=== PATIENT | female | born 1995 | race Caucasian/White ===

== ENCOUNTER 2019-10-12 17:54 | Emergency (ER) | payer SELFPAY ==
[~2019-10-12] VITALS: Ht 165.1 cm; Wt 77.0 kg
[2019-10-12] MEDS ORDERED: HYDROcodone/APAP 5/325MG 1 TAB TABLET PO ONE (18:45)
--- NOTE | 2019-10-12 19:01 | RAD ---
Study: 1. CR WRIST 3V RIGHT 2. CR ELBOW LEFT 3V Indication: Fall. Comparison: None. Findings: Elbow: Elbow fracture/dislocation with dorsal dislocation of the radius and ulna relative to the distal humerus. Obliquely oriented, comminuted and displaced fracture of the distal humerus. Attention on post reduction radiographs for detection of any fractures elsewhere. Wrist: Longitudinal split fracture along the ulnar margin of the distal radius with intra-articular extension. Nondisplaced transversely oriented fracture through the metaphysis. Nondisplaced fracture of the ulnar styloid process. Impression: Elbow: 1. Fracture/dislocation at the elbow with dorsal dislocation of the radius and ulna relative to the distal humerus and a comminuted and displaced fracture of the distal humerus with intra-articular extension. Wrist: 1. Multidirectional distal radius fracture to include a longitudinal split component extending along the ulnar margin of the distal radius through the articular surface. 2. Nondisplaced ulnar styloid process fracture. Electronically signed by: RENE LEE MD (10/12/2019 6:58 PM) [id number]
[2019-10-12] MEDS ORDERED: MORPHINE SULFATE 10 MG/ML VIAL. IM ONE ×2 (19:15→20:00)
[2019-10-12] MEDS ORDERED: ONDANSETRON ODT 4 MG TAB.RAPDIS. PO ONE (19:15)
[2019-10-12] MEDS ORDERED: KETOROLAC 60 MG/2 ML VIAL. IM ONE (20:00)
--- NOTE | 2019-10-12 21:28 | RAD ---
CT of the left upper extremity. HISTORY: Fracture distal humerus Axial CT images were obtained through the elbow. Radius and ulna are intact. There is a displaced comminuted fracture of the supracondylar distal humerus. There is a dislocation of the medial fragment out of the joint. The lateral distal humeral fragment is articulating with the radius. There is dorsal displacement of the lateral fracture fragment. There is rotation and anterior displacement of the medial fragment. IMPRESSION: 1. Comminuted angulated displaced supracondylar fracture distal humerus. 2. Dislocation of the medial fragment relative to the ulna PQRS Compliance Statement: One or more of the following individualized dose reduction techniques were utilized for this examination: 1. Automated exposure control 2. Adjustment of the mA and/or kV according to patient size 3. Use of iterative reconstruction technique Electronically signed by: Luther Orellana MD (10/12/2019 9:25 PM) [facility]
[2019-10-12] MEDS ORDERED: HYDROmorphone 2 MG/ML VIAL IM ONE (22:00)
--- NOTE | 2019-10-12 22:02 | PHYS DOC ---
Past Medical History Past Medical History: No Pertinent History (MARV JON APRN) Past Surgical History: No Surgical History (MARV JON APRN) Smoking Status: Never Smoker Alcohol Use: None Drug Use: None (MARV JON APRN) General Adult EDM: Chief Complaint: ELBOW PROBLEM HPI: HPI: Patient is a 24 year old female who presents to the ED today with moderate pain to the left elbow and right wrist after falling during rollerskating. Patient denies hitting her head. Denies any loss of consciousness. States the pain is worse on range of motion. States the pain is constant especially on the elbow (MARV JON APRN) Review of Systems: Review of Systems: Constitutional: Denies fever or chills. [] Musculoskeletal: Reports left elbow and right wrist pain Integument: Denies rash. [] Neurologic: Denies headache, focal weakness or sensory changes. [] Psychiatric: Denies depression or anxiety. [] (MARV JON APRN) Heart Score: Risk Factors: Risk Factors: DM, Current or recent (<one month) smoker, HTN, HLP, family history of CAD, obesity. Risk Scores: Score 0 - 3: 2.5% MACE over next 6 weeks - Discharge Home Score 4 - 6: 20.3% MACE over next 6 weeks - Admit for Clinical Observation Score 7 - 10: 72.7% MACE over next 6 weeks - Early Invasive Strategies (MARV JON APRN) Current Medications: Current Medications Medications (Trade) Dose Ordered Sig/[facility] Start Time Stop Time Status Last Admin Dose Admin Acetaminophen/ Hydrocodone Bitart (Lortab 5/325) 2 tab 1X ONCE 10/12/19 18:45 10/12/19 18:46 Cancel Hydromorphone HCl (Dilaudid) 1 mg 1X ONCE 10/12/19 22:00 10/12/19 22:01 Ketorolac Tromethamine (Toradol Im) 60 mg 1X ONCE 10/12/19 20:00 10/12/19 20:01 DC 10/12/19 20:06 60 MG Morphine Sulfate (Morphine Sulfate) 5 mg 1X ONCE 10/12/19 20:00 10/12/19 20:01 DC 10/12/19 20:05 5 MG Ondansetron HCl (Zofran Odt) 4 mg 1X ONCE 10/12/19 19:15 10/12/19 19:25 DC 10/12/19 19:29 4 MG (MARV JON APRN) Allergies: Allergies: Allergies Coded Allergies Type Severity Reaction Last Updated Verified No Known Drug Allergies 08/04/14 No (MARV JON APRN) Physical Exam: PE: Constitutional: Well developed, well nourished, no acute distress, non-toxic appearance. [] Skin: Warm, dry, no erythema, no rash. [] Back: No tenderness, no CVA tenderness. [] Extremities: Left elbow appears obviously deformed. Tenderness on palpation of the left olecranon process. Limited range of motion to the left elbow due to pain and deformity. Full range of motion to the left fingers. Adequate radial, medial, ulnar sensation to the left hand. +2 left radial pulse. Right wrist with mild swelling on the lateral aspect. No obvious deformity. Tenderness on palpation of the right wrist diffusely. No point tenderness to the scaphoid. Full range of motion to the right wrist. +2 right radial pulse. Adequate radial median ulnar sensation to the right fingers. Neurologic: Alert and oriented X 3, normal motor function, normal sensory function, no focal deficits noted. [] Psychologic: Affect normal, judgement normal, mood normal. [] (MARV JON APRN) Current Patient Data: Vital Signs: Vital Signs Date Time Temp Pulse Resp B/P (MAP) Pulse Ox O2 Delivery O2 Flow Rate FiO2 10/12/19 20:35 16 100 10/12/19 20:05 Room Air 10/12/19 18:14 98.1 68 129/62 (84) 98.1 (MARV JON APRN) EKG: EKG: [] (MARV JON APRN) Radiology/Procedures: Radiology/Procedures: []PROCEDURE: WRIST 3V RIGHT Study: 1. CR WRIST 3V RIGHT 2. CR ELBOW LEFT 3V Indication: Fall. Comparison: None. Findings: Elbow: Elbow fracture/dislocation with dorsal dislocation of the radius and ulna relative to the distal humerus. Obliquely oriented, comminuted and displaced fracture of the distal humerus. Attention on post reduction radiographs for detection of any fractures elsewhere. Wrist: Longitudinal split fracture along the ulnar margin of the distal radius with intra-articular extension. Nondisplaced transversely oriented fracture through the metaphysis. Nondisplaced fracture of the ulnar styloid process. Impression: Elbow: 1. Fracture/dislocation at the elbow with dorsal dislocation of the radius and ulna relative to the distal humerus and a comminuted and displaced fracture of the distal humerus with intra-articular extension. Wrist: 1. Multidirectional distal radius fracture to include a longitudinal split component extending along the ulnar margin of the distal radius through the articular surface. 2. Nondisplaced ulnar styloid process fracture. Electronically signed by: RENE LEE MD (10/12/2019 6:58 PM) [id number] DICTATED and SIGNED BY: RENE LEE MD DATE: 10/12/191857 (MARV JON APRN) Course & Med Decision Making: Course & Med Decision Making Pertinent Labs and Imaging studies reviewed. (See chart for details) This is a 24-year-old female patient presenting to the ED today with a right wrist and right elbow pain status post falling. right elbow xrays read by radiologist-rracture/dislocation at the elbow with dorsal dislocation of the radius and ulna relative to the distal humerus and a comminuted and displaced fracture of the distal humerus with intra-articular extension. Right wrist Multidirectional distal radius fracture to include a longitudinal splitcomponent extending along the ulnar margin of the distal radius through the articular surface. Nondisplaced ulnar styloid process fracture. spoke with Dr. Garsia he requested a posterior long-arm splint for the left upper extremity which was done by the logistics technician, neurovascular exam done by me is intact. He also requested a CAT scan of the left upper extremity which was done prior to discharge. Right upper extremity was also placed in volar splint by the logistics technician, n eurovascular exam done by me is normal. Ice elevation encouraged. Follow-up with Dr. Samuels on this week. (MARV JON APRN) Dragon Disclaimer: [place] Disclaimer: This electronic medical record was generated, in whole or in part, using a voice recognition dictation system. (MARV JON APRN) Departure Departure Impression: Primary Impression: Fall from standing Qualified Codes: W19.XXXA - Unspecified fall, initial encounter Additional Impressions: Left elbow fracture Qualified Codes: S42.402A - Unspecified fracture of lower end of left humerus, initial encounter for closed fracture Wrist fracture, right Qualified Codes: S62.101A - Fracture of unspecified carpal bone, right wrist, initial encounter for closed fracture Disposition: HOME, SELF-CARE Condition: STABLE Referrals: NO PCP (PCP) FRANK CHANEL II, MD follow up on . Call the office on Monday next week for appointment on Patient Instructions: Elbow Fracture, Radial Head with [facility], Fall Prevention and Home Safety, Wrist Fracture with [facility] Additional Instructions: You were evaluated in the emergency room and have elbow fracture on the left as well as wrist fracture of the right. Please contact the provided orthopedic doctor on Monday and set up a follow-up appointment. Try to ice and elevate the extremity. Scripts Oxycodone/Apap 5-325 (PERCOCET 5-325 MG TABLET ) 1 Each Tablet 1 TAB PO PRN Q6HRS PRN for PAIN, #21 TAB 0 Refills Prov: MARV JON APRN 10/12/19 Justicifation of Admission Dx: Justifications for Admission: Justification of Admission Dx: N/A (MARV JON APRN) Attending Signature Attending Signature I have reviewed the PA/SALESFORCE DEVELOPER's note and plan of care. I was available for consultation as needed during the patient's visit in the emergency department. I agree with the clinical impression, plan, and disposition. (NOE CANDELARIO DO) MARV JON APRN Oct 12, 2019 22:02 NOE CANDELARIO DO Oct 12, 2019 23:30
[2019-10-12] MEDS ORDERED: OXYC1TAB15 PO (22:06)
[2019-10-12 22:25] VITALS: BP 131/87
== END 2019-10-12 22:28 | disposition home or self-care (01) ==
LOC: ER 17:54
DX: S42.492A Other displaced fracture of lower end of left humerus, initial encounter for closed fracture (principal); S62.014A Nondisplaced fracture of distal pole of navicular [scaphoid] bone of right wrist, initial encounter for closed fracture; W18.39XA Other fall on same level, initial encounter; Y93.89 Activity, other specified; Y92.89 Other specified places as the place of occurrence of the external cause; Y99.8 Other external cause status
CPT/HCPCS: 29105; 29125; 73080; 73110; 73200; 96372; 99285; J1170; J1885; J2270

== ENCOUNTER → 2019-10-17 | Outpatient (CLI) | payer SELFPAY ==
[2019-10-12 22:25] VITALS: BP 131/87
[~2019-10-17] MED LIST: CLON1TAB PO; FLUO40CA2 PO; OXYC1TAB15 PO; QUET300T5 PO
== END | disposition home or self-care (01) ==
LOC: LAB 13:13
PROVIDERS: ATTEND Orthopaedic Surgery Sports Medicine
DX: Z01.818 Encounter for other preprocedural examination (principal); Z11.59 Encounter for screening for other viral diseases
CPT/HCPCS: U0003-CS

== ENCOUNTER 2019-10-21 09:38 | Observation (INO) | payer SELFPAY ==
[~2019-10-21] VITALS: Ht 166.4 cm; Wt 86.3 kg
[2019-10-21] VITALS (7 sets, daily range): BP systolic 149–157; BP diastolic 76–92
[~2019-10-21 09:38] MED LIST changes: +IV RINGERS,LACTATED 1000ML 1,000 ML IV SCH; +LIDOCAINE 1% PF 2 ML VIAL. ID PRN; +ONDANSETRON PF 4 MG/2 ML VIAL. IV PRN; +fentaNYL PF VIAL 100 MCG/2 ML VIAL IV PRN
[2019-10-21] MEDS ORDERED: LIDOCAINE 1% PF 30 ML VIAL. ONE (10:04)
[2019-10-21] MEDS ORDERED: BUPIVACAINE MPF 0.5% 30 ML VIAL. ONE (10:04)
[2019-10-21] MEDS ORDERED: PROPOFOL 10 MG/ML (20ML) VIAL. IV ONE (10:07)
[2019-10-21] MEDS ORDERED: DEXAMETHASONE SOD PHOS 4 MG/ML VIAL ONE (10:07)
[2019-10-21] MEDS ORDERED: ONDANSETRON PF 4 MG/2 ML VIAL. ONE (10:07)
[2019-10-21] MEDS ORDERED: LIDOCAINE 2% PF 5 ML VIAL. ONE (10:07)
[2019-10-21] MEDS ORDERED: MIDAZOLAM HCL/PF 2 MG/2 ML VIAL. ONE (10:08)
[2019-10-21] MEDS ORDERED: fentaNYL PF VIAL 250 MCG/5 ML VIAL ONE (10:08)
[2019-10-21] MEDS ORDERED: ROCURONIUM 50 MG/5 ML VIAL. ONE (10:08)
[2019-10-21] MEDS ORDERED: SCOPOLAMINE 1.5MG PATCH. TD ONE (10:25)
--- NOTE | 2019-10-21 10:43 | DISCH ---
DISCHARGE INSTRUCTIONS Condition on Discharge Condition on Discharge: Stable Activity After Discharge Activity Instructions for Disc: Other, see below Other activity instructions: Okay to use hands for light ADLs, eating and dressing Bathing Instructions: Shower-keep dressing dry Weight Bearing Status after Di: Non weight bearing Diet after Discharge Diet after Discharge: Regular Wound Incision Care Wound/Incision Care: Ice to area for comfort, Keep wound/cast CDI, Keep wound elevated, Do not change dressing Contacting the DRNamita after DC Call your doctor for: Concerns you may have Follow-Up Follow up with: Price in 2 wks FRANK CHANEL II, MD Oct 21, 2019 10:43
--- NOTE | 2019-10-21 10:49 | PDOC4 ---
Operative Note Operative Note Date of procedure: 10/21/2019 Surgeon: Nilesh Chanel Assistants: Joe Padilla and Jerome Lou Preoperative diagnosis: #1 closed displaced intra-articular left distal humerus fracture 2. Closed displaced intra-articular right distal radius fracture Postoperative diagnosis: Same Procedures performed: #1 open reduction internal fixation left distal humerus fracture 2. Open reduction internal fixation intra-articular right distal radius fractur e Anesthesia: General Blood loss: About 50 mL combined Tourniquet times: 90 minutes for elbow, less than 45 for wrist Complications: None Findings: Acute fractures Components inserted: At her elbow, a 2 hole left olecranon plate 3 hole left medial distal humerus plate and a 7 hole left lateral distal humeral plate were used at her wrist, a right 3 hole distal volar locking plate was used from [employer]. Reason for procedure: Patient is a very pleasant 24-year-old female who had a ground-level fall while rollerskating, she is seen in the emergency department splinted and sent to my clinic for definitive management. After reviewing her x-rays, I discussed operative intervention with her and discussed the risks, benefits, and alternatives and she wished to proceed. Description of procedure: Patient was greeted in the preoperative holding area by myself where the correct sites were verified and marked. She was then taken back to the operative suite and antibiotics were started as she was brought ba . Once in the operating, she was transferred gently supine to the operating room table and secured the bed with all pressure points padded. She was in a lateral decubitus position with the left side up, and axillary roll was used. She was secured with a beanbag. Splint was taken down and chlorhexidine pre- scrub was performed. After this, we proceeded to prep and drape left upper extremity in her usual sterile fashion and then applied an sterile tourniquet. Preoperative timeout was then conducted. I then palpated marked surface anatomy and mavis a line for my planned posterior approach to her elbow. Extremities exsanguinated with an Esmarch and tourniquet was insufflated to 250 mmHg. After this, incising with a scalpel and dissected subcutaneous tissue with electrocautery until identified fascia, incised this in line with the skin incision. I then developed these planes medially and laterally around the triceps. After this, I identified the ulnar nerve and protected it with a vessel loop. I then bluntly dissected underneath the triceps medially and laterally and identified the fracture site and used a metal tip suction device and small curette to debride the fracture. I was unable to reduce the fracture well and had difficulty visualizing the trochlear fracture fully given my difficulty with reduction and visualization I performed a chevron osteotomy of her ulna, completing it gently with a osteotome. This allowed great visualization, the elbow was then reduced, I used a large jjzjp-cu-ztmyn to re duce the medial fragment and placed my plate against the bone and then clamped everything in place again. I then placed a couple screws above below the fracture site and confirmed good reduction under biplanar fluoroscopy. I then filled the remainder the screw holes. I then directed my attention to the lateral fragment, using a tlaty-ky-rgpcf from the medial plate to the lateral epicondyle as well as 1 in the anterior posterior plane and was happy with reduction. I then set placed my plate against bone, checking its position and was happy with the reduction and hardware position. I then drilled and placed screws laterally. After this, I used to wchcc-ba-ymmog clamps to help facilitate the reduction of her olecranon osteotomy site and then secured the p late to the bone with 3 screws followed by 2 through the posterior aspect of the plate. I reinforced this with a #2 ultra braid in ndvbtj-fp-gtkhk fashion tension band fashion at the triceps tendon.The operative field was then thoroughly irrigated out. Tourniquet was let down and bleeders were cauterized. After this, I proceeded to close fascia with simple interrupted #1 Vicryl followed by inverted interrupted 2-0 Vicryl for subcutaneous tissue and 3-0 Monocryl in a buried subcuticular fashion for skin. Prior to wound closure, all counts correct x2. We then placed Xeroform gauze and an ABD followed by cast padding and then fashioned a posterior splint. The patient was then laid supine and we attached to the hand table to the operating room table on her right side. The splint was taken down and a chlorhexidine pre-scrub was accomplished. The right upper extremity was then prepped and draped after a nonsterile tourniquet was applied. We then conducted our timeout for this procedure as well. After this, I palpated and marked her radial artery as well as my incision for my volar Mp approach. Skin was incised with a scalpel after extremity was exsanguinated with an Esmarch and tourniquet insufflated to 250 mmHg. I dissected subcutaneous tissue with tenotomy's and identified her FCR tendon. I used bipolar cautery for hemostasis as bleeders were encountered. Fascia was incised in line with the skin incision on the radial aspect of the FCR tendon I bluntly dissected down to identify the pronator quadratus and took this off distal radius with electrocautery. I then used a periosteal elevator to expose the volar distal radius, and the fracture site in anticipation of plate application. She had already begun some healing and the fracture fragments were not freely mobile so I did use a small thin freer at the fracture line to mobilize these fragments which then allowed me to perform a reduction maneuver. I provisionally sized and placed plate against bone and confirmed good position and reduction under biplanar fluoroscopy and then proceeded placed 2 nonlocking screws into the distal fragment followed by 3 more locking screws, taking care to capture the ulnar column. After this, I essentially levered her fracture into better angulation using digital pressure on the plate and then secured the plate to the distal radius with a nonlocking screw followed by 2 more. Then took my final images. I was happy with hardware position and fracture reduction. The wound was then thoroughly irrigated out. Tourniquet was let down and a couple small bleeders were cauterized with bipolar cautery. She had a palpable radial pulse, 2+. After this, I closed subcutaneous tissue with inverted interrupted 2-0 Vicryl followed by 3-0 nylon in mattress fashion. Local anesthetic was injected in the steffen-incisional soft tissues. The arm and hand were cleansed and dried and a sterile dressing was applied after Xeroform gauze. I opted to place a volar and dorsal slab over this wrist, as opposed to my normal sugar tong I would have used however given her left elbow fracture I do think it more reasonable that she use this side a little bit more for her ADLs. At the inclusion of this procedure, all counts were correct x2. No complications. She is awake from anesthesia and transiently spine to the recovery room cart and taken to PACU in stable and extubated condition. Postoperative plan is to discharge her home. She will be nonweightbearing bilateral upper extremities but can use them for light ADLs. I will see her back in 2 weeks, sooner should a problem arise. NILESH CHANEL II, MD Oct 21, 2019 10:49
[2019-10-21] MEDS ORDERED: HYDROmorphone 2 MG/ML VIAL ONE ×3 (12:01→17:03)
[2019-10-21] MEDS ORDERED: ceFAZolin SODIUM IV Push 1 GM VIAL. IVP ONE ×2 (14:36)
[2019-10-21] MEDS ORDERED: GLYCOPYRROLATE 1 MG/5 ML VIAL. ONE (15:16)
[2019-10-21] MEDS ORDERED: NEOSTIGMINE METHYLSULFATE 5 MG/5 ML SYRINGE. ONE (15:16)
[2019-10-21] MEDS ORDERED: PROCHLORPERAZINE 10 MG/2 ML VIAL. ONE (15:50)
[2019-10-21] MEDS: PROCHLORPERAZINE 10 MG/2 ML VIAL. IV PRN ×2 (15:52→16:23)
[2019-10-21] MEDS ORDERED: MORPHINE SULFATE 2 MG/ML VIAL. ONE ×2 (16:00→16:45)
[2019-10-21] MEDS: MORPHINE SULFATE 2 MG/ML VIAL. IV PRN ×5 (16:00→23:09)
[2019-10-21] MEDS: HYDROmorphone 2 MG/ML VIAL IV PRN ×7 (16:05→17:26)
[2019-10-21] MEDS ORDERED: 0.9 % SODIUM CHLORIDE 10 ML DISP.SYRIN. IV PRN (17:00)
[2019-10-21] MEDS ORDERED: ZOLPIDEM 5 MG TABLET. PO PRN (17:00)
[2019-10-21] MEDS ORDERED: ONDANSETRON PF 4 MG/2 ML VIAL. IVP PRN (17:00)
[2019-10-21] MEDS ORDERED: oxyCODONE/APAP 5/325 1 TAB TABLET PO PRN ×2 (17:00)
[2019-10-21] MEDS ORDERED: MAGNESIUM HYDROXIDE 2,400 MG/30 ML ORAL.SUSP. PO PRN (17:00)
[2019-10-21] MEDS ORDERED: CALCIUM CARBONATE 500 MG TAB.CHEW PO PRN (17:00)
[2019-10-21] MEDS ORDERED: clonazePAM 0.5 MG TABLET PO PRN (17:30)
[2019-10-21] MEDS: oxyCODONE/APAP 5/325 1 TAB TABLET PO PRN (19:32)
[2019-10-21] MEDS ORDERED: QUEtiapine 100 MG TABLET. PO SCH (21:00)
[2019-10-21] MEDS: SENNOSIDES/DOCUSATE 8.6/50MG TABLET. PO SCH (21:00)
[2019-10-22] MEDS: oxyCODONE/APAP 5/325 1 TAB TABLET PO PRN ×3 (00:05→09:53)
[2019-10-22] MEDS: MORPHINE SULFATE 2 MG/ML VIAL. IV PRN (01:33)
[2019-10-22] MEDS: MORPHINE SULFATE 4 MG/ML VIAL. IV PRN ×2 (02:52→04:03)
[2019-10-22 03:00] VITALS: BP 168/80
--- NOTE | 2019-10-22 04:39 | NUR ---
patient rating pain on left elbow as 7 sharp in nature radiating to left fingers start having cramps right arm pain okay
[2019-10-22 07:00] VITALS: BP 156/80
--- NOTE | 2019-10-22 08:35 | PDOC ---
ORTHO PROGRESS NOTES DATE: 10/22/19 TIME: 08:34 Subjective She was having a lot of pain in the PACU last night and we made the decision to admit her for pain control. She tells me that her wrist is not feeling too bad, she feels a lot of pain in her posterior elbow. Denies any paresthesias in her hands Vitals Vital Signs Date Time Temp Pulse Resp B/P (MAP) Pulse Ox O2 Delivery O2 Flow Rate FiO2 10/22/19 07:45 Room Air 10/22/19 07:00 98.3 73 16 156/80 (105) 97 98.3 10/21/19 20:00 10.0 Labs Laboratory Tests Test 10/21/19 10:00 Bedside Urine HCG, Qualitative Hcg negative (Negative) Laboratory Tests Test 10/21/19 10:00 Bedside Urine HCG, Qualitative Hcg negative (Negative) Notes She is awake and alert in bed. Splints are intact. Normal motor and sensation are present in her hands. Assessment and Plan She can be discharged home today. She has prescriptions already at home. Nonweightbearing bilateral upper extremities, okay to use hands for light ADLs. FRANK CHANEL II, MD Oct 22, 2019 08:35
--- NOTE | 2019-10-22 08:36 | PDOC3 ---
Discharge Summary Visit Information Date of Admission: Oct 21, 2019 Date of Discharge: Oct 22, 2019 Admitting Diagnosis: ORIF left distal humerus and ORIF right distal radius Brief Hospital Course Allergies Allergies Coded Allergies Type Severity Reaction Last Updated Verified No Known Drug Allergies 10/21/19 No Vital Signs Vital Signs Date Time Temp Pulse Resp B/P (MAP) Pulse Ox O2 Delivery O2 Flow Rate FiO2 10/22/19 07:45 Room Air 10/22/19 07:00 98.3 73 16 156/80 (105) 97 98.3 10/21/19 20:00 10.0 Lab Results Laboratory Tests Test 10/21/19 10:00 Bedside Urine HCG, Qualitative Hcg negative (Negative) Laboratory Tests Test 10/21/19 10:00 Bedside Urine HCG, Qualitative Hcg negative (Negative) Brief Hospital Course Ms. Mahoney is a 24 old with closed left distal humerus and right distal radius fractures after a fall. We discussed the surgery and she tolerated surgery well. She was recovering well from a hemodynamic standpoint in the PACU, but was having progressively worsening pain we made the decision to admit her for observation. On postop day 1, her pain was much better. She had normal motor and sensation in her hands. She was maintaining her ADLs fairly well. She had normal bowel and bladder function and was tolerating regular diet. Pain is controlled on oral pain medicine at the time of discharge. She was afebrile during this hospitalization. Discharge Information Condition at Discharge: Stable Follow Up: Weeks Disposition/Orders: D/C to Home Scheduled Fluoxetine Hcl (Fluoxetine Hcl) 40 Mg Capsule, 40 MG PO DAILY for DEPRESSION, (Reported) Entered as Reported by: DARNELL STOKES on 10/18/191029 Last Taken: Unknown Dose on 10/20/19 Last Action: Converted on 10/21/191653 by DULCE CHANEL MD Quetiapine Fumarate (Seroquel) 300 Mg Tablet, 300 MG PO HS for BIPOLAR , (Reported) Entered as Reported by: DARNELL STOKES on 10/18/191029 Last Taken: Unknown Dose on 10/20/19 Last Action: Converted on 10/21/191653 by DULCE CHANEL MD Scheduled PRN Clonazepam (Klonopin) 1 Mg Tablet, 1 MG PO PRN PRN for ANXIETY / AGITATION, (Re ported) Entered as Reported by: DARNELL STOKES on 10/18/19 1030 Last Taken: Unknown Dose on 10/21/19929 Last Action: Converted on 10/21/191653 by DULCE CHANEL MD Oxycodone/Apap 5-325 (Percocet 5-325 Mg Tablet ) 1 Each Tablet, 1 TAB PO PRN Q6HRS PRN for PAIN, #21 Ref 0 Prescribed by: Daria Keita APRN on 10/12/192205 Last Taken: Unknown Dose on 10/21/19929 Last Action: Continued on 10/21/191653 by DULCE CHANEL MD Patient Instructions Patient Instructions She will be discharged home, nonweightbearing bilateral upper extremities, okay to use hands for light ADLs. She will follow-up with me in 2 weeks, sooner should a problem arise. She should keep the splints clean dry and intact. Justicifation of Admission Dx: Justifications for Admission: Justification of Admission Dx: N/A FRANK CHANEL II, MD Oct 22, 2019 08:36
[2019-10-22] MEDS: SENNOSIDES/DOCUSATE 8.6/50MG TABLET. PO SCH (08:58)
[2019-10-22] MEDS ORDERED: FLUoxetine HCL 20 MG CAPSULE PO SCH (09:00)
--- NOTE | 2019-10-22 09:21 | NUR ---
SW following. Discussed with RN, pt had surgery 10/20, regular diet, room air. Pt wanting to discharge due to self pay status. SW will continue to follow for any discharge planning needs.
[2019-10-22 11:00] VITALS: BP 151/67
--- NOTE | 2019-10-22 11:49 | NUR ---
Patient left around 1145 with her . Discharge education completed by this nurse. No scripts given to patient. Notified to follow up with Dr Todd in 10-14 days and to be NWB on her BUE. No concerns noted at discharge.
== END 2019-10-22 11:50 | disposition home or self-care (01) ==
LOC: SURG 09:38 → 4 NORTH 17:15
PROVIDERS: ADMIT Orthopaedic Surgery Sports Medicine; ATTEND Orthopaedic Surgery Sports Medicine
DX: S42.492A Other displaced fracture of lower end of left humerus, initial encounter for closed fracture (principal); S52.591A Other fractures of lower end of right radius, initial encounter for closed fracture; V00.121A Fall from non-in-line roller-skates, initial encounter; Y93.51 Activity, roller skating (inline) and skateboarding; Y92.89 Other specified places as the place of occurrence of the external cause; Y99.8 Other external cause status
CPT/HCPCS: 24586; 25608; 76000; 81025; 96374; 96376; G0378; G0379; J0690; J0780; J1100; J1170; J2250; J2270; J2405; J2704; J2710; J3010; J3490; A7015; C1713; C1715

== ENCOUNTER 2020-11-09 20:01 | Emergency (ER) | payer BC ==
[~2020-11-09] VITALS: Ht 165.1 cm; Wt 72.7 kg
[~2020-11-09 20:01] MED LIST changes: -IV RINGERS,LACTATED 1000ML 1,000 ML IV SCH; -LIDOCAINE 1% PF 2 ML VIAL. ID PRN; -ONDANSETRON PF 4 MG/2 ML VIAL. IV PRN; -fentaNYL PF VIAL 100 MCG/2 ML VIAL IV PRN
--- NOTE | 2020-11-10 00:12 | PHYS DOC ---
Past Medical History Past Medical History: No Pertinent History Additional Past Medical Histor: PTSD Past Surgical History: No Surgical History Smoking Status: Never Smoker Alcohol Use: None Drug Use: None General Adult EDM: Chief Complaint: MULTIPLE COMPLAINTS HPI: HPI: Patient is a 25 year old female with history of PTSD who presents with 3-4 days of cough, myalgias, chills, nausea/vomiting, diarrhea. States that she has slight shortness of breath. Denies chest pain. Has not measured any fevers at home. Has been taking Tylenol and ibuprofen [id number] regularly. Last doses were at 5 PM. Her 5-year-old child has similar symptoms at home that started today. She is not vaccinated for Covid. 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 Does use a mask at work. She denies any known Covid contacts. Not vaccinated for flu this year either. Review of Systems: Review of Systems: Constitutional: Denies fever. Reports chills. [] Eyes: Denies change in visual acuity. [] HENT: Reports nasal congestion and sore throat. [] Respiratory: Reports cough and mild shortness of breath. [] Cardiovascular: Denies chest pain or edema. [] GI: Reports N/V, diarrhea. Denies bloody stools, melena, or abdominal pain.. [] : Denies dysuria. [] Musculoskeletal: Reports diffuse myalgias. Denies back pain or joint pain. [] Integument: Denies rash. [] Neurologic: Denies headache, focal weakness or sensory changes. [] Endocrine: Denies polyuria or polydipsia. [] Lymphatic: Denies swollen glands. [] Psychiatric: Denies depression or anxiety. [] Heart Score: C/O Chest Pain: No Risk Factors: Risk Factors: DM, Current or recent (<one month) smoker, HTN, HLP, family history of CAD, obesity. Risk Scores: Score 0 - 3: 2.5% MACE over next 6 weeks - Discharge Home Score 4 - 6: 20.3% MACE over next 6 weeks - Admit for Clinical Observation Score 7 - 10: 72.7% MACE over next 6 weeks - Early Invasive Strategies Current Medications: Current Medications Medications (Trade) Dose Ordered Sig/Sha Start Time Stop Time Status Last Admin Dose Admin Ondansetron HCl (Zofran Odt) 4 mg 1X ONCE 11/10/20 00:30 11/10/20 00:31 Allergies: Allergies: Allergies Coded Allergies Type Severity Reaction Last Updated Verified No Known Drug Allergies 10/21/19 No Physical Exam: PE: Constitutional: Well developed, well nourished, no acute distress, non-toxic appearance. [] HENT: Normocephalic, atraumatic, bilateral external ears normal, oropharynx moist mild oropharyngeal erythema. Uvula midline. No masses. No neck pain with ROM in all directions.. [] Eyes: PERRLA, EOMI, conjunctiva normal, no discharge. [] Neck: Normal range of motion, no tenderness, supple, no stridor. [] Cardiovascular:Heart rate regular rhythm, no murmur [] Lungs & Thorax: Bilateral breath sounds clear to auscultation [] Abdomen: Bowel sounds normal, soft, no tenderness, no masses, no pulsatile masses. [] Skin: Warm, dry, no erythema, no rash. [] Back: No tenderness, no CVA tenderness. [] Extremities: No tenderness, no cyanosis, no clubbing, ROM intact, no edema. [] Neurologic: Alert and oriented X 3, normal motor function, normal sensory function, no focal deficits noted. [] Psychologic: Affect normal, judgement normal, mood normal. [] Current Patient Data: Vital Signs: Vital Signs Date Time Temp Pulse Resp B/P (MAP) Pulse Ox O2 Delivery O2 Flow Rate FiO2 11/09/20 22:37 97.7 89 118/77 (95) 97 Room Air 97.7 EKG: EKG: Sinus rhythm. Rate 63. Right axis deviation, question lead placement given aVR is upright. No acute ischemic changes. QTc 408. [] Radiology/Procedures: Radiology/Procedures: [] Course & Med Decision Making: Course & Med Decision Making Pertinent Labs and Imaging studies reviewed. (See chart for details) Patient a 25-year-old female who presents with 3-4 days of chills, myalgias, cough, and/V, diarrhea. Unvaccinated for Covid On arrival is afebrile, vital signs are all normal. O2 sats 99-100%. Normal work of breathing. Lungs are clear. Do not feel that she would benefit from a chest x-ray at this time. Seems most consistent with a viral syndrome such as influenza or Covid. Swab sent for both. Treated for nausea with Zofran. She appears well-hydrated, and as above with normal vital signs do not feel that laboratory studies would be useful. She was educated about the importance of isolation. I encouraged her to consider getting the Covid vaccination. [place] Disclaimer: [place]quito Disclaimer: This electronic medical record was generated, in whole or in part, using a voice recognition dictation system. Departure Departure Impression: Primary Impression: Viral infection Disposition: HOME / SELF CARE / HOMELESS Condition: STABLE Referrals: NO PCP (PCP) Additional Instructions: Your rapid Covid and influenza tests were negative. For pain tylenol and ibuprofen are best used on a schedule. Please alternate between the two. -Tylenol 1000 mg every 6 hours (do not exceed 4000 mg in one day) -Ibuprofen 400 mg every 6 hours. Take with food. Do not take for more than 1 week For nausea: Use Zofran 4 mg every 6-8 hours as needed. Please self isolate until you know the results of your Covid test and they were negative. Please continue to isolate until you were feeling better for 48 hours and have not had a fever. If your Covid test results positive, you will need to self isolate for at least 10 days since your symptoms started and have 72 hours without a fever and with improved symptoms. Since you do not have a PCP, please call the number for the [facility] at [phone]. CRISTOBAL GOULD MD Nov 10, 2020 00:12
[2020-11-10] MEDS ORDERED: ONDANSETRON ODT 4 MG TAB.RAPDIS. PO ONE (00:30)
--- NOTE | 2020-11-10 01:53 | EKG ---
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
[2020-11-10 02:02] LABS: INFLUENZA A PATIENT NEGATIVE (NEGATIVE); INFLUENZA B PATIENT NEGATIVE (NEGATIVE)
[2020-11-10 02:17] VITALS: BP 118/73
--- NOTE | 2020-11-10 02:32 | EKG ---
[facility] [address] [place] [address] Test Date: 2020-11-10 Test Time: 01:04:29 Pat Name: MERCEDES HOLT Department: Room: Gender: F [employer] Worker: : 1995 Requested By: CRISTOBAL GOULD Order Number: [id number] Reading MD: Measurements Intervals [place] Rate: 63 P: 138 PA: 164 QRS: 149 QRSD: 80 T: 159 QT: 396 QTc: 408 Interpretive Statements SINUS RHYTHM ATRIAL PREMATURE COMPLEX(ES) ABNORMAL RIGHT AXIS DEVIATION QRS(T) CONTOUR ABNORMALITY CONSISTENT WITH HIGH LATERAL MYOCARDIAL DAMAGE ABNORMAL ECG RI6.02 Compared to ECG 11/10/2020 01:02:51 T-wave abnormality no longer present
--- NOTE | 2020-11-10 18:26 | NUR ---
IP: Attempted to contact pt concerning covid results. No answer, left a voicemail to return the call.
== END 2020-11-10 02:42 | disposition home or self-care (01) ==
LOC: ER 20:01
DX: B34.9 Viral infection, unspecified (principal); Z20.822 Contact with and (suspected) exposure to COVID-19
CPT/HCPCS: 87426; 87804; 93005; 99285; U0003; U0005